=== PATIENT | female | born 1970 | race Hispanic/Latino ===

== ENCOUNTER 2016-11-26 16:58 | Emergency (ER) | payer SELFPAY ==
[2016-11-26] MEDS ORDERED: Ondansetron ODT 4 MG TAB ONE (17:34)
[2016-11-26] MEDS ORDERED: Naproxen 500 MG TAB ONE (18:12)
[2016-11-26] MEDS ORDERED: HYDROcodone/Acetaminophen 10/325 mg Tablet ONE (18:12)
[2016-11-26] MEDS ORDERED: AMOXicillin 250 MG CAP ONE (18:12)
== END 2016-11-26 18:45 | disposition home or self-care (01) ==
LOC: MADERS 16:58
DX: J32.4 Chronic pansinusitis (principal)
CPT/HCPCS: 96372; J1040; Q0162